=== PATIENT | female | born 1980 | race Caucasian/White ===

== ENCOUNTER 2017-09-05 11:46 | Emergency (ER) | payer OTHER ==
[2017-09-05 11:46] VITALS: BMI 28.3
[2017-09-05 12:36] VITALS: BP 103/61; PULSE 73; RESP 18; TEMP 100.3; O2SAT 100
[2017-09-05 13:35] LABS: RBC URINE 6 /hpf (0-3); URINE BACTERIA MOD (<OCC); URINE BILIRUBIN NEGATIVE (NEGATIVE); URINE BLOOD NEGATIVE (NEGATIVE); URINE COLOR AMBER (YELLOW); URINE GLUCOSE (UA) NEG (Normal); URINE KETONE 80 mg/dL (NEGATIVE); URINE LEUKOCYTE ESTERASE LARGE Leu/uL (Negative); URINE PROTEIN 100 mg/dL (NEGATIVE); URINE UROBILINOGEN 0.2-1.0 mg/dL (0.2-1.0); WBC URINE 27 /hpf (0-5)
[2017-09-05 13:37] LABS: ALB/GLOB RATIO 1.1 (1.0-2.1); ALKALINE PHOSPHATASE 52 U/L (38-126); ALT/SGPT 13 U/L (9-52); AST/SGOT 18 U/L (14-36); BILIRUBIN,TOTAL 0.4 mg/dl (0.2-1.3); BLOOD UREA NITROGEN 9 mg/dl (7-17); CALCIUM 8.8 mg/dL (8.4-10.2); CARBON DIOXIDE 20 mmol/L (22-30); CHLORIDE 104 mmol/L (98-107); GFR AFRICAN-AMERICAN > 60; GLUCOSE,RANDOM 78 mg/dL (65-105); SODIUM 134 mmol/l (132-148); TOTAL PROTEIN 7.3 G/DL (6.3-8.2)
[2017-09-05 13:38] LABS: BASO # 0.1 K/uL (0.0-0.2); BASO % 0.8 % (0.0-2.0); EOS % 0.4 % (0.0-4.0); HEMATOCRIT 34.4 % (34.0-47.0); LYMPH # 1.9 K/uL (1.0-4.3); LYMPH % 21.4 % (20.0-40.0); MEAN CORPUSCULAR HEMOGLOBIN 30.3 pg (27.0-31.0); MEAN CORPUSCULAR HGB CONC 33.6 g/dL (33.0-37.0); MEAN PLATELET VOLUME 8.7 fl (7.2-11.7); MONO # 0.6 K/uL (0.0-0.8); MONO % 6.7 % (0.0-10.0); NEUT # 6.2 K/uL (1.8-7.0); NEUT % 70.7 % (50.0-75.0); NRBC % 0.1 % (0.0-0.0); RED CELL DISTRIBUTION WIDTH 12.7 % (11.5-14.5); WHITE BLOOD COUNT 8.7 K/uL (4.8-10.8)
[2017-09-05] MEDS ORDERED: Sodium Chloride 0.9% 1,000 ML IV STA (16:33)
--- NOTE | 2017-09-05 17:08 | ED PDOC ---
HPI:Nausea, Vomiting, Diarrhea Time Seen by Provider: 09/05/17 13:10 Chief Complaint (Nursing): Abdominal Pain Chief Complaint (Provider): Nausea and vomiting History Per: Patient History/Exam Limitations: no limitations Onset/Duration Of Symptoms: Other (3 weeks) Additional Complaint(s): Patient is a 36 y/o female with no significant past medical history presenting to the emergency department for nausea, several episodes of vomiting, fatigue, and a headache ongoing for three weeks. Notes that last was complicated with hyperemesis. Denies vaginal bleeding, pelvic pain, prior care for , fever, cough, syncope, or other complaints. PCP: none provided. Abnormal Vaginal Bleeding: No Last Menstral Period: 07/11/2017 : 3 Para: 2 Past Medical History Reviewed: Historical Data, Nursing Documentation, Vital Signs Vital Signs: Last Vital Signs Temp 100.3 F H 09/05/17 12:30 Pulse 73 09/05/17 12:30 Resp 18 09/05/17 12:30 BP 103/61 09/05/17 12:30 Pulse Ox 100 09/05/17 12:30 - Medical History PMH: No Chronic Diseases - Surgical History Surgical History: No Surg Hx - Family History Family History: States: Unknown Family Hx - Social History Current smoker - smoking cessation education provided: No Ex-Smoker (has not smoked in the last 12 months): No Alcohol: None Drugs: Denies - Home Medications Home Medications: Ambulatory Orders Medication Instructions Recorded Nitrofurantoin Macrocrystals 100 mg PO BID #14 cap 07/31/14 [Macrobid] Ondansetron [Zofran] 4 mg PO Q8H #9 tab 07/31/14 Naproxen 500 mg PO BID PRN #20 tab 05/14/15 Nitrofurantoin Macrocrystals 100 mg PO BID #10 cap 05/14/15 [Macrobid] Acetaminophen/Hydrocodone Bi 1 tab PO QID PRN #10 tab 05/17/15 [Vicodin 300 mg-5 mg] Ondansetron [Zofran Odt] 4 mg PO TID PRN #15 odt 05/17/15 Ibuprofen [Motrin] 600 mg PO Q6 #20 tab 05/18/16 Sulfamethoxazole/Trimethoprim 1 tab PO BID #10 tab 05/18/16 [Bactrim DS 800 mg-160 mg] Cephalexin [cephalexin] 500 mg PO BID #10 cap 09/05/17 Ondansetron [Zofran] 4 mg PO Q6H PRN #10 tab 09/05/17 - Allergies Allergies/Adverse Reactions: Allergies Allergy/AdvReac Type Severity Reaction Status Date / Time No Known Allergies Allergy Verified 05/18/16 18:39 Review of Systems ROS Statement: Except As Marked, All Systems Reviewed And Found Negative Constitutional: Positive for: Other (fatigue). Negative for: Fever Respiratory: Negative for: Cough Gastrointestinal: Positive for: Nausea, Vomiting Genitourinary Female: Negative for: Vaginal Bleeding, Pelvic Pain Neurological: Positive for: Headache. Negative for: Other (syncope) - Laboratory Results Result Diagrams: 09/05/17 13:21 09/05/17 13:21 - ECG O2 Sat by Pulse Oximetry: 100 (RA) Pulse Ox Interpretation: Normal Medical Decision Making Medical Decision Making: Time: 13:55 Initial impression: Nausea and vomiting in the setting of . Initial plan: ED Urine Dipstick ED Urine Normal Saline 1 L IV Zofran 4 mg IV Urine Culture OB Transvaginal Ultrasound Reevaluation Blood work revealed positive with ketones in urine. 17:29 Transvaginal ultrasound reviewed. Findings noted as follows: Findings: The uterus measures approximately 7.6 x 4.9 x 6.9 cm. Retroverted. Cervix length measures approximately 3.7 cm and appears closed. There is a single intrauterine fetus present. The gestational sac measures 2.9 cm and is compatible with a gestational age of 7 weeks 5 days. The crown-rump length measures 1.9 cm and is compatible with a gestational age of 8 weeks 3 days. Probable small subchorionic hemorrhage measures approximately 1.7 x 0.2 x 2.6 cm. There is heart motion which measured 170.4 BPM. The right ovary measures 2.1 x 1.1 x 2.5 cm. The left ovary measures 3.4 x 1.0 x 2.8 cm. Blood flow was demonstrated to both ovaries. Impression: Live single intrauterine with estimated gestational age 7 weeks 5 days by gestational sac calculation and 8 weeks 3 days by crown-rump length calculation. heart rate 170.4 bpm. Probable small subchorionic hemorrhage measures approximately 1.7 x 0.2 x 2.6 cm. Advise an anomaly screen at 16-18 weeks gestational age Scribe Attestation: Documented by Caitlyn Oliveira, acting as a scribe for Kehinde Lo DO. Provider Scribe Attestation: All medical record entries made by the Scribe were at my direction and personally dictated by me. I have reviewed the chart and agree that the record accurately reflects my personal performance of the history, physical exam, medical decision making, and the department course for this patient. I have also personally directed, reviewed, and agree with the discharge instructions and disposition. Disposition - Clinical Impression Clinical Impression: Hyperemesis gravidarum, Threatened , UTI (urinary tract infection) - Patient ED Disposition Is Patient to be Admitted: No Counseled Patient/Family Regarding: Studies Performed, Diagnosis, Need For Followup, Rx Given - Disposition [facility] Disposition: Routine/Home Disposition Time: 17:30 Condition: STABLE Additional Instructions: Followup for full testing. Return to ER for any worse or new symptoms. Recommend eating small, frequent meals and using nausea medicine only as directed. Prescriptions: Cephalexin [cephalexin] 500 mg PO BID #10 cap Ondansetron [Zofran] 4 mg PO Q6H PRN #10 tab PRN Reason: Nausea/Vomiting Instructions: Threatened Miscarriage (ED), Hyperemesis Gravidarum (ED), Urinary Tract Infection in (ED), Subchorionic Hemorrhage (ED) Forms: [facility] (Beninese) Print Language: YORUBA
--- NOTE | 2017-09-05 17:30 | US ---
Indication: Ob transvaginal Comparison: Abdominal pain, early Technique: Ob transvaginal ultrasound. Findings: The uterus measures approximately 7.6 x 4.9 x 6.9 cm. Retroverted. Cervix length measures approximately 3.7 cm and appears closed. There is a single intrauterine fetus present. The gestational sac measures 2.9 cm and is compatible with a gestational age of 7 weeks 5 days. The crown-rump length measures 1.9 cm and is compatible with a gestational age of 8 weeks 3 days. Probable small subchorionic hemorrhage measures approximately 1.7 x 0.2 x 2.6 cm. There is heart motion which measured 170.4 BPM. The right ovary measures 2.1 x 1.1 x 2.5 cm. The left ovary measures 3.4 x 1.0 x 2.8 cm. Blood flow was demonstrated to both ovaries. Impression: Live single intrauterine with estimated gestational age 7 weeks 5 days by gestational sac calculation and 8 weeks 3 days by crown-rump length calculation. heart rate 170.4 bpm. Probable small subchorionic hemorrhage measures approximately 1.7 x 0.2 x 2.6 cm. Advise an anomaly screen at 16-18 weeks gestational age
== END 2017-09-05 16:30 | disposition home or self-care (01) ==
LOC: H.ER 11:46
DX: O20.0 Threatened abortion (principal); O21.0 Mild hyperemesis gravidarum; O23.41 Unspecified infection of urinary tract in pregnancy, first trimester; Z3A.08 8 weeks gestation of pregnancy
CPT/HCPCS: 76817; 80053; 81003; 81025; 84702; 85025; 87086; 96360; 99283; J2405; J7040

== ENCOUNTER 2018-03-21 17:26 | Emergency (ER) | payer SELFPAY ==
[2018-03-21 18:43] VITALS: BMI 24.7
[2018-03-21 22:58] VITALS: BP 105/70; PULSE 102; TEMP 98.6; O2SAT 100
--- NOTE | 2018-03-23 19:03 | OBHP ---
Datetime: 03/21/2018 20:58 IP Adm Impression: , intrauterine ; No Active Labor IP Admit Plan: Observation/Evaluation; Discharge home Admit Comment, IP Provider: 37-year-old 012 at 36 weeks and 4 days gestational age transferred to OB ED due to nonreactive NST in clinic. Patient without complaints at this time. Patient denies a ny contractions, vaginal bleeding, leakage of fluids. At this time, patient reports good moveme nt. Past medical history denies Past surgical history denies Medications vitamins No known drug allergies Social history no tobacco, no drugs, no alcohol NST reactive Assessment: 36 weeks with reactive NST Plan: Patient discharged to home with labor precautions Follow-up with clinic as already scheduled Extremities - PN: Normal Abdomen - PN: Normal Back - PN: Normal Neurologic - PN: Normal HEENT - PN: Normal General - PN: Normal FHR - Baseline A Provider: 140s-150s Contraction Comments Provider: occasional irritability IP Hx Assessment: The History has been Reviewed and is Current EGA AdmitDate IP: 36.6 Vital Signs Provider: Reviewed; Within Normal Limits IP Chief Complaint: Decreased movement NICHD Variability Prov Fetus A: Moderate 6-25bpm NICHD Accel Fetus A IP Provider: 15X15 FHR Category Provider Fetus A: Category I NICHD Decel Fetus A IP Provider: None
== END 2018-03-21 18:45 | disposition home or self-care (01) ==
LOC: H.EROB2 17:26
DX: O76 Abnormality in fetal heart rate and rhythm complicating labor and delivery (principal); Z3A.36 36 weeks gestation of pregnancy

== ENCOUNTER 2018-04-04 22:16 | Emergency (ER) | payer SELFPAY ==
--- NOTE | 2018-04-04 23:40 | OBHP ---
Datetime: 04/04/2018 22:57 IP Adm Impression: Term, intrauterine ; No Active Labor; Intact Membranes IP Admit Plan: Observation/Evaluation; Discharge home Admit Comment, IP Provider: 37 yo F IUP at 39.6 weeks, presents c/o ctx since yesterday that have been increasing since 1 hour ago, she reports the ctxs every 10 min. Denies lof, vb and states good movements. Patient is scheduled for IOL tomorrow. PNC: [facility] Dr Moreno. OBH: NVD x2, SAB x1 PMH: denies FMH: denies PSH: none SH: denies alcohol, tobacco, drugs NKDA PE: see PE tab VSS A/P: 37 yo F IUP at 39.6 weeks with CTX, no active labor. - /maternal monitoring - discharge home - labor precautions given - advised come back tomorrow for scheduled IOL. Case discussed with Dr Carolyn Cole PGY1. Addendum: No evidence of labor at this time. Category 1 tracing. Patient scheduled for induction of labor to [place], patient discharged home with labor precautions. Patient will return to labor and delivery for induction tomorrow as already scheduled area discussed plan with patient and all patient questions a nswered. Carolyn Pelvic Type - PN: Adequate Extremities - PN: Normal Abdomen - PN: Normal Back - PN: Not Done Breast - PN: Not Done Lungs - PN: Normal Heart - PN: Normal Thyroid - PN: Normal Neurologic - PN: Normal HEENT - PN: Normal General - PN: Normal FHR - Baseline A Provider: 150 Membranes, Provider: Intact Contraction Comments Provider: occasional EGA AdmitDate IP: 38.6 Vital Signs Provider: Reviewed; Within Normal Limits IP Chief Complaint: Uterine contractions NICHD Variability Prov Fetus A: Moderate 6-25bpm NICHD Accel Fetus A IP Provider: [id number] FHR Category Provider Fetus A: Category I NICHD Decel Fetus A IP Provider: None Dilatation, Provider: 1 Effacement, Provider: thick Station, Provider: -3 Genitourinary Exam: Normal DTRs - PN: Not Done
[2018-04-05 05:54] VITALS: BP 115/73; PULSE 74; TEMP 98
== END 2018-04-04 23:40 | disposition home or self-care (01) ==
LOC: H.EROB2 22:16
DX: O47.1 False labor at or after 37 completed weeks of gestation (principal); Z3A.39 39 weeks gestation of pregnancy

== ENCOUNTER 2018-04-05 15:09 | Emergency (ER) | payer SELFPAY ==
--- NOTE | 2018-04-05 15:43 | OBHP ---
Datetime: 04/05/2018 15:37 IP Adm Impression: Term, intrauterine IP Admit Plan: Observation/Evaluation; Discharge home Admit Comment, IP Provider: Patient is a @ 39 wks for rule out labor. Patient reports contra ctions, light vaginal bleeding. +FM, no leaking. Patient presented to labor and delivery yesterday an d was 1cm. No issues, x 2 previously, no surgical complications, no allergies. FHR is 145 moderate [place], +accelerations, no decels. Cat-I tracing, ruled out for labor and signs of chorio. Will discharge home, labor precautions Pelvic Type - PN: Adequate Extremities - PN: Normal Abdomen - PN: Normal Back - PN: Normal Breast - PN: Normal Lungs - PN: Normal Heart - PN: Normal Thyroid - PN: Normal Neurologic - PN: Normal HEENT - PN: Normal General - PN: Normal FHR - Baseline A Provider: 145 Contraction Comments Provider: Irregular EGA AdmitDate IP: 39.0 Vital Signs Provider: Reviewed; Within Normal Limits IP Chief Complaint: Uterine contractions NICHD Variability Prov Fetus A: Moderate 6-25bpm NICHD Accel Fetus A IP Provider: 15X15 NICHD Decel Fetus A IP Provider: None Dilatation, Provider: 2 Effacement, Provider: 50 Station, Provider: -3 Genitourinary Exam: Normal DTRs - PN: Normal
--- NOTE | 2018-04-05 17:02 | OBHP ---
Datetime: 04/05/2018 15:37 Admit Comment, IP Provider: Patient is a @ 39 wks for rule out labor. Patient reports contra ctions, light vaginal bleeding. +FM, no leaking. Patient presented to labor and delivery yesterday an d was 1cm. Patient noted to be 1% growth for AC and HC for induction 04/06, x 2 previously, no denson rgical complications, no allergies. FHR is 145 moderate [place], +accelerations, no decels. Cat-I tracing , ruled out for labor and signs of chorio. Will discharge home, labor precautions and return tomorrow for induction EGA AdmitDate IP: 39.1
[2018-04-05 23:28] VITALS: BP 103/69; PULSE 66
== END 2018-04-05 16:26 | disposition home or self-care (01) ==
LOC: H.EROB2 15:09
DX: O47.1 False labor at or after 37 completed weeks of gestation (principal); O46.93 Antepartum hemorrhage, unspecified, third trimester; Z3A.39 39 weeks gestation of pregnancy

== ENCOUNTER 2018-04-06 17:51 | Inpatient (IN) | payer MEDICAID, SELFPAY ==
[2018-04-06 18:25] VITALS: BMI 30.9
[2018-04-06] MEDS ORDERED: Oxytocin 30 units/LR 500ML 30 U/500 ML BAG IV ONE (18:39)
[2018-04-06] MEDS ORDERED: Lactated Ringer's 1,000 ML IV SCH ×3 (19:00)
[2018-04-06 19:29] LABS: BASO # 0.1 K/uL (0.0-0.2); BASO % 0.8 % (0.0-2.0); EOS % 0.2 % (0.0-4.0); HEMOGLOBIN 11.8 g/dL (12.0-16.0); LYMPH % 15.8 % (20.0-40.0); MEAN CELL VOLUME 88.1 fl (81.0-99.0); MEAN CORPUSCULAR HEMOGLOBIN 29.2 pg (27.0-31.0); MEAN CORPUSCULAR HGB CONC 33.2 g/dL (33.0-37.0); MEAN PLATELET VOLUME 10.8 fl (7.2-11.7); MONO # 0.7 K/uL (0.0-0.8); MONO % 5.5 % (0.0-10.0); NEUT % 77.7 % (50.0-75.0); NRBC % 0.1 % (0.0-0.0); RBC 4.04 Mil/uL (3.80-5.20); RED CELL DISTRIBUTION WIDTH 15.2 % (11.5-14.5); WHITE BLOOD COUNT 12.9 K/uL (4.8-10.8)
[2018-04-06] MEDS ORDERED: Oxycodone/Acetaminophen 5/325 mg Tab PO PRN (19:50)
[2018-04-06] MEDS ORDERED: Benzocaine/Menthol SPRAY TOP PRN (19:50)
--- NOTE | 2018-04-06 20:01 | OBDS ---
MATERNAL INFORMATION Estimated Blood Loss (ml): 200 Maternal Complications: Precipitous Labor (<3hrs) Provider Comments: Over intact perineum, of live male infant at 19:28 PM, Weight 3045 gm, 6#11.4, 9/9 . Hea d rapidly delivered first by MICHAEL Umaña on patient bed with reduction of nuchal cords x 2, was bulb suctioned nasopharyngeally and crying spontaneously. Umbilical cord was doubly clamped and cut. Skin to skin was done with mother. Placenta was delivered intact spontaneously w/ a 3vc at 7:36pm. Pe rineum 1st degree laceration repaired w/ a single interrrupted stitch of 2-0 rapisde. Uterus firm and appropriately hemostatic following delivery. Pt tolerated delivery well. No Complications. EBL 200m L QBL 200 mL. Patient and baby remained stable. Case d/w OB attending Dr. Hines --- Cade Leon MD PGY-1 LABOR SUMMARY EDC: 04/11/2018 00:00 No. Babies in Womb: 1 LABOR INFORMATION Reason for Induction: Intrauterine Growth Retardation Reason for Induction Other: Pt was scheduled for IOL but experiened Steroids Given: None Reason Steroids Not Administered: Not Applicable Other Reason Not Administered: Term VAGINAL DELIVERY Episiotomy: None Laceration Extension: First Degree Laceration Type: Perineal Laceration Repair: Yes Laceration Repair Note: Repair of first degree perineal laceration with one 2-0 vicryl rapid. (SH) Sponge Count Correct: Yes Sharps Count Correct: Yes
--- NOTE | 2018-04-06 20:12 | OBADHP ---
Datetime: 04/06/2018 18:40 Admit Comment, IP Provider: 37 yo EGA 39.2 based on LMP of 07/05/2017; Pt was originally jayce eduled for IOL 2/2 IUGR. However, on presentation, she reported CTX that started at 07:00 the day mario or. Also reports VB and good movement Denies: LOF; ROS: Denies: dizziness, headache, blurred vision, CP/SOB/N/V/C/D, dysuria, epigastric pain PNC: Dr. Moreno, denies significant events during this obhx: SAB x1 2015 at 2 weeks 2004 Female at 40 wks uncomplicated 2010 Female at 40 wks uncomplicated PMHX: none famhx: htn soc: denies smoking etoh and smoking surg: none NKDA meds: PNV and Iron Gen: AAOx3 in acute distress with each contraction Cardiac: S1S2 no murmurs Lungs: CTA bilaterally no wheezing abdo: gravid, active bowel sounds bedside US: cephalic HIV: neg; hbsag: neg; gbs: neg; rubella: equivical; gc/c: neg; RPR: NEG; O+ ab neg 37 yo IUP EGA 39.2 based on LMP of 07/05/2018 induction planned at [address] Martinez for IUGR -admit to L_d -CBC, TS -Requests anesthesia for epidural: LR 2 L bolus, 1L at [address] Flora Leon MD PGY1 OB Hospitalist Addendum: Pt seen and examined by me. Agree w/ above. 37 yo at 39+2 wks admitted for induction of labor for growth restriction. Pt is already in labor. GBS negative. FHT reassuring. (ES) Pelvic Type - PN: Adequate Extremities - PN: Normal Abdomen - PN: Normal Back - PN: Normal Breast - PN: Not Done Lungs - PN: Normal Heart - PN: Normal Thyroid - PN: Not Done Neurologic - PN: Normal HEENT - PN: Normal General - PN: Normal FHR - Baseline A Provider: 150 Pool Provider: Negative Vital Signs Provider: Reviewed; Within Normal Limits IP Chief Complaint: Uterine contractions; Scheduled induction of labor; Maternal discomfort NICHD Variability Prov Fetus A: Moderate 6-25bpm NICHD Accel Fetus A IP Provider: 15X15 FHR Category Provider Fetus A: Category I NICHD Decel Fetus A IP Provider: None Dilatation, Provider: 4 Effacement, Provider: 90 Station, Provider: -1 Genitourinary Exam: Normal DTRs - PN: Not Done EGA AdmitDate IP: 39.2 IP Adm Impression: Term, intrauterine IP Admit Plan: Admit to unit Datetime: 04/05/2018 15:37 Contraction Comments Provider: Irregular Datetime: 04/04/2018 22:57 Membranes, Provider: Intact Datetime: 03/21/2018 20:58 IP Hx Assessment: The History has been Reviewed and is Current
[2018-04-07 07:25] LABS: BASO # 0.1 K/uL (0.0-0.2); BASO % 0.9 % (0.0-2.0); EOS % 0.3 % (0.0-4.0); HEMOGLOBIN 9.2 g/dL (12.0-16.0); LYMPH # 1.9 K/uL (1.0-4.3); LYMPH % 13.5 % (20.0-40.0); MEAN CELL VOLUME 88.9 fl (81.0-99.0); MEAN CORPUSCULAR HEMOGLOBIN 29.3 pg (27.0-31.0); MEAN PLATELET VOLUME 10.3 fl (7.2-11.7); MONO % 6.9 % (0.0-10.0); NEUT # 10.9 K/uL (1.8-7.0); NEUT % 78.4 % (50.0-75.0); NRBC % 0.1 % (0.0-0.0); RBC 3.15 Mil/uL (3.80-5.20); RED CELL DISTRIBUTION WIDTH 15.4 % (11.5-14.5); WHITE BLOOD COUNT 13.9 K/uL (4.8-10.8)
[2018-04-07] MEDS: Multivitamin With Minerals Tab PO SCH (08:17)
--- NOTE | 2018-04-07 11:17 | OBPPN ---
Datetime: 04/07/2018 08:48 PP Pain Prov: Within normal limits PP Nausea Prov: Denies PP Flatus Prov: Yes PP BM Prov: No PP Heart Prov: Normal PP Lungs Prov: Normal PP Abdomen/Uterus Prov: Normal PP Lochia Prov: Normal PP Vulva/Perineum Prov: Normal PP CVA Tenderness Prov: Normal PP Extremities Prov: Normal PP Progress Prov: Normal PP Impression Prov: Normal progression PP Plan Prov: Continue present management PP Progress Note Prov: PPD 1 [place] Sinhala: [id number] 37 y/o female now on PPD 1 seen and examined at bedside this morning. No overnight events. Reports pain is controlled with pain medications. Voiding freely w/o blood noted. Pt reports passing gas per rectum but no BM yet. Ambulating well w/o dizziness. Lochia is similar to menses volume. Pt is and bottle feeding the baby w/o difficulty. Denies nausea, vomiting, fever, chills, chest pain or calf pain. Pt does not desire circumcision for the baby. Physical Exam: General: A_O, resting comfortably in bed, NAD HEENT: oral mucosa moist. Lungs: CTA B/L, no wheezing, rhonchi or rales CVS: RRR, S1, S2 ABD: ND, +BS, firm fundus @ umbilical level. Soft, appropriate TTP. EXT: no edema, negative Larisa's sign, Neuro/psych: AAOX3. assessment: 37 y/o female now doing well on PPD 1 Anemia (H_H 9.12/05 this AM) Plan: OOB w/ caution Regular diet Start Feosol 325 po BID Percocet and Ibuprofen for pain management Senokot for constipation and dietitian consults for Encourage and ambulation Anticipate discharge tomorrow Sugar, pgy-2 case d/w on-call OB hospitalist Addendum by Dr. Clifton: i have evaluated the patient independently and I agree with the above Vital Signs Provider PP: Reviewed
[2018-04-08] MEDS ORDERED: Measles, Mumps, and Rubella 0.5 ML VIAL SC ONE (09:00)
[2018-04-08] MEDS: Multivitamin With Minerals Tab PO SCH (09:41)
--- NOTE | 2018-04-08 10:04 | OBPPN ---
Datetime: 04/08/2018 05:50 PP Pain Prov: Within normal limits PP Nausea Prov: Denies PP Flatus Prov: Yes PP BM Prov: Yes PP Breasts Prov: Not Done PP Heart Prov: Normal PP Lungs Prov: Normal PP Abdomen/Uterus Prov: Normal PP Lochia Prov: Normal PP CVA Tenderness Prov: Normal PP Extremities Prov: Normal PP C/S Incision Prov: Not Applicable PP Progress Prov: Normal PP Impression Prov: Normal progression PP Plan Prov: Discharge PP Impression Other Prov: Patient is both breast and bottled feeding but mainly breast PP Progress Note Prov: 37 y/o s/p NVD on 04/06/2018. Patient is seen and examined at beside this AM. There were no significant events overnight. Patient is ambulating well without any issues. S he is baby, and tolerating regular PO diet well. Lochia is similar to light menses in v olume. Patient has been voiding without any difficulty. Patient had a bowel movement, and passing fla tus. Denies fever, chills, chest pain, dyspnea, dizziness, nausea, vomiting or diarrhea. PE General: Laying comfortably in bed Cardio:s1s2, no murmurs Resp:b/l breath sounds auscultated Abd: bowel sounds auscultated Ext: no tenderness Neuro/Psych: A _ O x 3 Assessment/Plan: 37 y/o s/p NVD on 04/06/2018, PPD 2. Patient is tolerating regular PO t, and doing well. 1. and ambulating encouraged. 2. Ibuprofen 600mg for pain as needed. 3. Ferrous sulfate 325mg tab, PO, BID prescribed for anemia. 4. Patient advised to follow up with OB in 4-6 weeks, d/c home today. Case discussed with OB Attending. Charlotte Bethea PGY-1 IP PP Procedures: Rubella Vital Signs Provider PP: Reviewed
--- NOTE | 2018-04-08 10:07 | OBDCSUM ---
Datetime: 04/05/2018 16:25 Discharge Instructions, Provider: Routine instructions given Discharge Diagnosis, Provider: Term Delivered Discharge Time: 04/08/2018 10:00 Follow up in weeks, Provider: 04/12/2018 Contraception discussed, Prov: Yes Disch Activity Restrictions: No exercising; No lifting; Minimize stair-climbing; No sexual activity; Nothing in vagina - Evaro, tampons, douche Discharge Comment, Provider: 1. Encourage . 2. Ibuprofen as needed for moderate pain and Percocet as needed for severe pain. 3. Ambulate as tolerated. 4. f/u visit in 3-7 days with chip tuner and PP visit 6 weeks with OB. 5. If you develop and worsening pain, please go to the ED. 6. No heavy lifting, avoid stairs, if excessive bleeding or fever, please go to the ED. Contraception after Delivery: Foam/Condoms Datetime: 04/04/2018 23:37 Discharge Instructions, Provider: Routine instructions given Follow up in weeks, Provider: 4 days, 04/12/18
[2018-04-08 15:59] VITALS: BP 116/62; PULSE 71; RESP 20; TEMP 98.8; O2SAT 100
== END 2018-04-08 11:42 | disposition home or self-care (01) | DRG 775 ==
LOC: H.EROB2 17:51 → H.L&D 18:37 → H.OB/GYN 22:00
PROVIDERS: ADMIT Obstetrics & Gynecology; ATTEND Obstetrics & Gynecology
PROC: 10E0XZZ Delivery of Products of Conception, External Approach (ICD-10-PCS; principal; 2018-04-06)
PROC: 0HQ9XZZ Repair Perineum Skin, External Approach (ICD-10-PCS; 2018-04-06)
PROC: 4A1HXCZ Monitoring of Products of Conception, Cardiac Rate, External Approach (ICD-10-PCS; 2018-04-06)
DX: O36.5930 Maternal care for other known or suspected poor fetal growth, third trimester, not applicable or unspecified (principal); Z37.0 Single live birth; Z3A.39 39 weeks gestation of pregnancy; O62.3 Precipitate labor; O70.0 First degree perineal laceration during delivery; O99.02 Anemia complicating childbirth